=== PATIENT | male | born 1945 | race Caucasian/White ===

== ENCOUNTER → 2021-05-09 | Outpatient (CLI) | payer MEDICARE ==
--- NOTE | 2021-05-09 10:05 | CTL ---
EXAMINATION TYPE: CT Low Dose Lung DATE OF EXAM ORDERED: 05/09/2021 HISTORY: Long-term tobacco use. Lung cancer screening CT DLP: 96.[address] CTDI: 2.7 mGy Automated exposure control for dose reduction was used. SCREENING VISIT: Baseline COMPARISON: None TECHNIQUE: Low dose computed tomography scan was performed through the chest at 1 mm thick sections a nd reconstructed images in multiple planes at 1 mm and [address] DIAGNOSTIC QUALITY: Satisfactory FINDINGS: LUNG NODULES: Present, detailed below: There is a 3.6 x 2.8 mm nodule right midlung anteriorly axial image 169. There is 5.7 x 5.5 mm peripheral left lower lobe spiculated nodule or scar like opacity axial image 2 00. There is 3.6 x 2.9 mm anterior left upper lobe nodule axial image 85 Medial right lung base shows 6.9 x 4.2 cm mass and/or masslike consolidation axial image 227 that war rants follow-up. This is reticulation and honeycombing along the anterior right aspect. LUNGS: COPD: Severity: Moderate Fibrosis: Severity: Mild biapical Lymph nodes: Prominent paracarinal lymph node axial image 120 measures 1.8 x 0.9 cm Other findings: None RIGHT PLEURAL SPACE: Effusion: None Calcification: None Thickening: None Pneumothorax: None LEFT PLEURAL SPACE: Effusion: None Calcification: None Thickening: None Pneumothorax: None HEART: Heart Size: Normal Coronary calcification: Moderate to severe three-vessel Pericardial effusion: None OTHER FINDINGS: Upper abdomen: No suspicious abnormality. 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 Supraclavicular region: No greater than 1 cm Other: Ascending aorta is ectatic up to 3.6 cm IMPRESSION: Moderate underlying emphysematous change with few small scattered nodules, suspicious med ial right lower lobe mass or less likely masslike consolidation warrants follow-up. CT LUNG RAD AND CT CHEST RECOMMENDATION: Lung-Rad 4B or 4X Very Suspicious: Follow-up Chest CT with o r without contrast or PET/CT and/or tissue sampling. PET/CT may be used when there is a > 8 mm solid component. S Modifier (other clinically significant findings):
== END | disposition home or self-care (01) ==
LOC: RADCTMAIN 09:15
PROVIDERS: ATTEND Internal Medicine Geriatric Medicine
DX: Z12.2 Encounter for screening for malignant neoplasm of respiratory organs (principal); Z87.891 Personal history of nicotine dependence
CPT/HCPCS: 71271

== ENCOUNTER 2021-05-25 13:10 | Day surgery (SDC) | payer MEDICARE ==
[2021-05-23 15:05] VITALS: BMI 25.9
[~2021-05-25 13:10] MED LIST: ALBUTEROL NEB (CONC) 2.5 MG/0.5 ML INHALATION ONE; DEXAMETHASONE SOD PHOSPHATE 4 MG/ML 1 ML VIAL IV ONE; HYDROmorphone 0.5 MG/0.5 ML SYRINGE IVP PRN; LACTATED RINGERS 1,000 ML IV SCH; LIDOCAINE 1% (10MG/ML) FOR IV START INTRADERMA PRN; LIDOCAINE 2% (PF) 20 MG/ML 5 ML VIAL INHALATION ONE; LIDOCAINE VISCOUS 300 MG/15 ML CUP MUCOUS MEM ONE; MIDAZOLAM 2 MG/2 ML VIAL IV PRN; ONDANSETRON 4 MG/2 ML VIAL IVP ONE; SODIUM CHLORIDE 0.9% 1,000 ML IV SCH
--- NOTE | 2021-05-25 14:50 | CT ---
EXAMINATION TYPE: CT Chest [address] Protocol DATE OF EXAM: 05/25/2021 COMPARISON: Low-dose lung screening CT May 09, 2021 HISTORY: Bronchial navigation. Recent abdominal CT. CT DLP: 580 mGycm Automated exposure control for dose reduction was used. FINDINGS: Exam is for bronchial planning and not for diagnostic purposes. Mild to moderate underlying emphysematous change redemonstrated. Persistent masslike consolidation me dial aspect right lower lobe with some adjacent intralobular septal thickening and groundglass opacit y along the inferior lateral aspect. Coronary artery calcification is again seen. IMPRESSION: As above.
[2021-05-25] MEDS ORDERED: SUCCINYLCHOLINE CHLORIDE 100 MG/5 ML SYR IV ONE (15:26)
[2021-05-25] MEDS ORDERED: PROPOFOL 10 MG/ML 20 ML VIAL IV ONE (15:26)
[2021-05-25] MEDS ORDERED: MIDAZOLAM 2 MG/2 ML VIAL ONE (15:26)
[2021-05-25] MEDS ORDERED: LIDOCAINE 1% INJ 10MG/ML (20 ML MDV) ONE (15:26)
[2021-05-25 16:45] VITALS: RESP 16; TEMP 98.3
--- NOTE | 2021-05-25 16:55 | XR ---
EXAMINATION TYPE: XR chest 1V portable DATE OF EXAM: 05/25/2021 COMPARISON: Chest CT earlier today. HISTORY: Postbronchoscopy. TECHNIQUE: Single AP portable frontal upright view of the chest is obtained. FINDINGS: There is chronic emphysematous change with medial right basilar masslike opacification red emonstrated. No pneumothorax identified after bronchoscopy. The cardiac silhouette size remains with in normal limits with atherosclerotic change in the thoracic aorta. The osseous structures are fanny neralized. IMPRESSION: No pneumothorax after bronchoscopy.
[2021-05-25 17:17] VITALS: BP 162/80; PULSE 63
--- NOTE | 2021-05-26 08:47 | P.PCN ---
Date of Procedure: 05/25/21 Operative Findings: Preoperative Diagnosis: 1 right upper lobe mass, posterior segment Postoperative Diagnosis: 1 right lower lobe mass, posterior segment Procedure(s) Performed: 1 flexible bronchoscopy, airway inspection 2 navigation bronchoscopy 3 transbronchial biopsy of the right lower lobe mass, with navigational guidance, transbronchial brushing, bronchioloalveolar lavage Surgeon: Ambar Melgoza Estimated Blood Loss (ml): 0 Pathology: other Condition: stable Disposition: same day Operative Findings: The patient underwent a computed tomography scan of the chest using the [facility] protocol. The right lower lobe mass was identified and was appropriately managed. All of this information was uploaded into the [employer] navigational tower. The Vpads were applied to the patient's chest. After obtaining the consent the patient was taken to the OR suite he was intubated and put on MV by anesthesia then the scope was advanced to the ET tube until the Trachea was seen and it was normal and then the diana appears normal then the scope advanced to the left main and MECHELLE LB1-LB3 were seen and no endobronchial lesions were seen then the scope advanced to the lingula and the LB4 and LB5 were seen and no endobronchial lesions were seen the scope retracted and advanced to the left lower lobes LB6 to LB12 were seen one by one and no endobronchial lesions, then the scope was retracted back to the diana and advanced to the Right main and RUL RB1 and RB2 and RB3 were seen one by one and no endobronchial lesions were seen the scope then retracted and advanced to the BI and RML RB4 and RB5 were seen and no endobronchial lesions were seen then it was retracted and advanced to the RLL RB6 to RB12 were seen one by one and no endobronchial lesions. Using navigational guidance, the bronchoscope was directed to the right lower lobe posterior segment and appropriate subsegment was identified. Chest bronchograms of the right lower lobe mass was done using navigational guidance with great accuracy. Multiple transbronchial biopsies were obtained. Following that, transbronchial brushings of the right lower lobe mass was done using navigational guidance.. At the completion of the procedure, bronchioloalveolar lavage of the right lower lobe was done. A total of 60 mL of fluid was infused around bases was suctioned back. No complications. bronchoscope was removed and the patient was extubated and transferred to recovery in stable condition.
== END 2021-05-25 17:50 | disposition home or self-care (01) ==
LOC: ORWHC2ENDO 13:10
PROVIDERS: ATTEND Internal Medicine Critical Care Medicine
DX: R91.1 Solitary pulmonary nodule (principal); R91.8 Other nonspecific abnormal finding of lung field; F17.200 Nicotine dependence, unspecified, uncomplicated; J44.9 Chronic obstructive pulmonary disease, unspecified; N40.0 Benign prostatic hyperplasia without lower urinary tract symptoms; I95.9 Hypotension, unspecified; E78.5 Hyperlipidemia, unspecified; Z98.890 Other specified postprocedural states; Z90.79 Acquired absence of other genital organ(s); Z85.46 Personal history of malignant neoplasm of prostate; Z98.42 Cataract extraction status, left eye; Z98.41 Cataract extraction status, right eye; Z79.899 Other long term (current) drug therapy
CPT/HCPCS: 87498; 87529; 87798 ×2; 88104; 88305; 88342; 87252; 88341; 87070; 87205; 87116; 87102; 87206; 71045; 71250; 31628; 31623; 31624; 31627; J2250; J1100; J2405; J2001; J0330; J2704; 31625

== ENCOUNTER → 2021-05-26 | Outpatient (CLI) | payer MEDICARE ==
--- NOTE | 2021-05-25 16:23 | P.PCN ---
Date of Procedure: 05/25/21 Operative Findings: Preoperative Diagnosis: 1 right upper lobe mass, posterior segment Postoperative Diagnosis: 1 right lower lobe mass, posterior segment Procedure(s) Performed: 1 flexible bronchoscopy, airway inspection 2 navigation bronchoscopy 3 transbronchial biopsy of the right lower lobe mass, with navigational guidance, transbronchial brushing, bronchioloalveolar lavage Surgeon: Ambar Melgoza Estimated Blood Loss (ml): 0 Pathology: other Condition: stable Disposition: same day Operative Findings: The patient underwent a computed tomography scan of the chest using the [facility] protocol. The right lower lobe mass was identified and was appropriately managed. All of this information was uploaded into the [employer] navigational tower. The Vpads were applied to the patient's chest. After obtaining the consent the patient was taken to the OR suite he was intubated and put on MV by anesthesia then the scope was advanced to the ET tube until the Trachea was seen and it was normal and then the diana appears normal then the scope advanced to the left main and MECHELLE LB1-LB3 were seen and no endobronchial lesions were seen then the scope advanced to the lingula and the LB4 and LB5 were seen and no endobronchial lesions were seen the scope retracted and advanced to the left lower lobes LB6 to LB12 were seen one by one and no endobronchial lesions, then the scope was retracted back to the diana and advanced to the Right main and RUL RB1 and RB2 and RB3 were seen one by one and no endobronchial lesions were seen the scope then retracted and advanced to the BI and RML RB4 and RB5 were seen and no endobronchial lesions were seen then it was retracted and advanced to the RLL RB6 to RB12 were seen one by one and no endobronchial lesions. Using navigational guidance, the bronchoscope was directed to the right lower lobe posterior segment and appropriate subsegment was identified. Chest bronchograms of the right lower lobe mass was done using navigational guidance with great accuracy. Multiple transbronchial biopsies were obtained. Following that, transbronchial brushings of the right lower lobe mass was done using navigational guidance.. At the completion of the procedure, bronchioloalveolar lavage of the right lower lobe was done. A total of 60 mL of fluid was infused around bases was suctioned back. No complications. bronchoscope was removed and the patient was extubated and transferred to recovery in stable condition.
== END | disposition home or self-care (01) ==
LOC: RADPETMAIN 12:57
PROVIDERS: ATTEND Internal Medicine Critical Care Medicine
DX: Z53.9 Procedure and treatment not carried out, unspecified reason (principal)

== ENCOUNTER → 2021-06-01 | Outpatient (CLI) | payer MEDICARE ==
--- NOTE | 2021-06-02 07:26 | PE ---
EXAMINATION TYPE: PET CT fusion skull to thigh DATE OF EXAM: 06/01/2021 COMPARISON: Low-dose lung screening CT May 09, 2021 HISTORY: Solitary pulmonary nodule, abnormal CT . History of prostate cancer 2016. History of bronc hoscopy with sampling one week ago. TECHNIQUE: Following the intravenous administration of 9.73 mCi of F-18 FDG, whole body images are p erformed from the skull base to the midthigh. Images are reviewed on the computer in the coronal, ax ial, and sagittal planes. Reconstructed rotating images are created on independent workstation and r eviewed on the computer. A localization and attenuation correction CT is performed in conjunction w ith the PET scan. Blood glucose level is 110. SCAN: Initial Scan FINDINGS: SKULL BASE AND NECK: No areas of abnormal hypermetabolic uptake. CHEST, MEDIASTINUM, AND HILAR REGION: Background moderate underlying emphysematous change is redemons trated. Persistent masslike consolidation medial right lower lobe measuring roughly 5.7 x 4.4 cm axia l image 115 with mild hypermetabolic uptake, max SUV is 4.51. No additional areas of abnormal hypermetabolic uptake. No suspicious hypermetabolic thoracic lymph no elodia. ABDOMEN AND PELVIS: Prominent excretion along the course of the bilateral ureters. Abnormal hypermeta bolic mass or lymph node measuring 1.9 x 1.3 cm posterior to the abdominal aorta axial image 165 with max SUV 4.29. No adrenal masses. OSSEOUS STRUCTURES: No areas of abnormal hypermetabolic uptake. OTHER CT: Moderate calcified plaque bilateral carotid bulb level. Moderate to severe coronary artery calcification. Pelvis patient level of the mitral and aortic valve. Prostate surgically absent. Scattered pelvic phleboliths. Multilevel facet arthropathy in the lumbar spine. Large bridging osteophytes in the spine redemonstrated. IMPRESSION: There is abnormal hypermetabolic uptake in the medial right lower lung mass and/or massli ke consolidation. Findings should be correlated with bronchoscopy. No thoracic adenopathy noted. Sing le enlarged hypermetabolic lymph node in the retroperitoneum directly posterior to the abdominal aort a causing anterior displacement worrisome for neoplastic involvement.
== END | disposition home or self-care (01) ==
LOC: RADPETMAIN 10:51
PROVIDERS: ATTEND Internal Medicine Critical Care Medicine
DX: R91.1 Solitary pulmonary nodule (principal); R91.8 Other nonspecific abnormal finding of lung field
CPT/HCPCS: 78815; A9552

== ENCOUNTER → 2022-10-03 | Outpatient (CLI) | payer MEDICARE ==
[2022-10-03 09:33] LABS: African American GFR (CKD) >90 (>60 ml/min/1.73 sqM); Blood Urea Nitrogen 14 mg/dL (9-20); Non-African American GFR(CKD) >90 (>60 ml/min/1.73 sqM)
--- NOTE | 2022-10-03 11:37 | CT ---
EXAMINATION TYPE: CT abdomen wo/w con DATE OF EXAM: 10/03/2022 COMPARISON: Prior PET/CT June 01, 2021 HISTORY: Hx lung ca, had RT lower lobe removed, having generalized abdomen pain under ribs in this ar ea CT DLP: 1083 mGycm Automated exposure control for dose reduction was used. TECHNIQUE: Helical acquisition of images was performed from the lung bases through the top of iliac crest to include entire abdomen. CONTRAST: Performed with Oral Contrast and with IV Contrast, patient injected with 100 mL of Isovue 300. FINDINGS: LUNG BASES: Calcification at level of the mitral and aortic valves is redemonstrated. Coronary artery calcification is redemonstrated. Tiny right pleural fluid collection is now present. Background mild lower lung linear scarring and/or atelectasis is now seen. LIVER/GB: Persistent roughly 1.1 cm thin-walled cyst in the anterior caudate lobe series 7 image 18. PANCREAS: No significant abnormality is seen. SPLEEN: No significant abnormality is seen. ADRENALS: No significant abnormality is seen. KIDNEYS: No renal calculi on noncontrast images. Postcontrast images show symmetric cortical medullar y uptake and excretion without hydronephrosis seen bilaterally. 5 mm simple-appearing thin-walled cys t right kidney medially on axial image 31 series 10 is incidentally noted. BOWEL: Oral contrast reaches at least distal left colon. No suspicious small or large bowel dilatati on . Contrast-filled appendix is partially imaged. LYMPH NODES: No significant abnormality is seen. OSSEOUS STRUCTURES: Bridging osteophytes in the thoracolumbar spine are redemonstrated. Correlate fo r possible DISH. FREE AIR: No free air is visualized. OTHER: Moderate predominantly calcified plaque of the aorta extends into branch vessels. More promine nt mixed plaque in the SMA. Significant stenosis suspected sagittal image 65. Focal ectasia measure s 2.4 x 2.5 cm axial image 42 series 7. IMPRESSION: 1. Moderate plaque of the aorta extends into branch vessels. There is more severe mixed plaque in the SMA. Significant stenosis is felt present. Advise Endovascular surgical referral to further evaluate . 2. New tiny right pleural fluid collection after right basilar lung treatment with mild bibasilar tomasa ear scarring and/or atelectasis otherwise no significant new acute findings evident to account for falguni boyd's symptoms.
== END | disposition home or self-care (01) ==
LOC: RADCTMAIN 08:23
PROVIDERS: ATTEND Internal Medicine Geriatric Medicine
DX: I70.0 Atherosclerosis of aorta (principal); J98.4 Other disorders of lung
CPT/HCPCS: 82565; 84520; 74170; 36415; Q9967